=== PATIENT | female | born 1970 | race Caucasian/White ===

== ENCOUNTER → 2016-11-15 | Outpatient (CLI) | payer OTHER ==
[~2016-11-15] MED LIST: ATIVAN0.5 MG PO; BUPROPION HYDR150 M3 PO; CITALOPRAM HYDR20 MG PO; FLEXERIL10 MG PO; HYDROCODONE-APA1 TA2 PO; LEVOTHYROXIN0.025 M1 PO; LISINOPRIL 10MG10 MG PO; NAPROSYN 500MG500 MG PO; NOMEDS XX; PERCOCET 5/3251 EACH PO; SULFAMETHOXAZOL1 TA6 PO; SYNTHROID0.025 MG PO; TRAZODONE 50MG50 MG PO; VOLTAREN50 MG PO
[2016-11-15 17:46] LABS: HEMOGLOBIN 14.6 g/dL (12.2-16.2); LYMPH # 2.4 K/mm3 (0.7-4.5)
[2016-11-15 21:18] LABS: BUN 16 mg/dL (7-18)
[2016-11-15 21:19] LABS: GFR (ESTIMATED) 68 ML/MIN (59-)
[2016-11-18 06:37] LABS: Vitamin D, 25-Hydroxy 30.8 ng/mL (30.0-100.0)
== END ==
LOC: LAB 16:58
PROVIDERS: Nurse Practitioner Family
DX: R53.83 Other fatigue (principal); E55.9 Vitamin D deficiency, unspecified

== ENCOUNTER 2017-01-17 14:27 | Day surgery (SDC) | payer OTHER ==
[~2017-01-17] VITALS: Ht 170.2 cm; Wt 140.6 kg
[~2017-01-17 14:27] MED LIST changes: +ASPIRIN 81MG TA81 MG PO; +CYANOCOBAL1000 MCG/M PO; +FLUOXETINE20 M1 PO; +LIPITOR40 MG PO; +NATURE'S BLEN1000 IU PO; +TIZANIDINE HCL 44 MG PO; +VISTARIL25 M1 PO; -VOLTAREN50 MG PO; +VOLTAREN75 MG PO
[2017-01-17 14:48] VITALS: BP 147/81
[2017-01-17 15:00] VITALS: BP 147/81
[2017-01-17 15:02] VITALS: BP 150/88
--- NOTE | 2017-01-17 15:10 | Procedure Note ---
Procedure detail Date of procedure: 01/17/17 Anesthesiologist: Alfredito Owen Complications: None Pre-procedure diagnosis: Degenerative disc disease or spine multiple levels. Lumbar radicular symptoms. Post-procedure diagnosis: Same. Indications for procedure: This patient is a pleasant 46-year-old white female who presents with low back pain radiating to both hips and down both legs. She has tried physical therapy with minimal relief. She is currently on diclofenac and Zanaflex which again did not provide her adequate relief. MRI of lumbar spine shows degenerative changes with RIGHT paracentral disc herniation at L5-S1. Pain score is a 6 out of 10. Procedure detail: Procedure: Lumbar epidural steroid injection under fluoroscopy Informed consent was obtained and the risks and benefits of the procedure were explained to the patient. The patient was taken to the procedure room and noninvasive monitors placed, including noninvasive blood pressure cuff and pulse oximeter. The back was viewed using C-arm Fluoroscopy and prepped using Betadine as a cleansing solution and the L4-L5 interspace was palpated. Skin and subcutaneous tissues were anesthetized using lidocaine 1.5% and a 25-gauge needle. After this, an 18-gauge Touhy epidural needle was placed into the L4-L5 interspace and advanced using fluoroscopic guidance and loss of resistance to air until the epidural space was encountered. After confirmation of needle placement in the epidural space, with dye, a solution containing lidocaine 1.5%, 4 mL and Depo-Medrol 80 mg were incrementally injected into the lumbar epidural space. The patient tolerated the procedure well with no complications. The patient was observed in the Pain Clinic and then discharged home neurologically intact. Plan and disposition: Patient was reevaluated if 10 minutes post procedure. She is doing very well. She'll return to see us in the pain clinic for further evaluation. at 2040
[2017-01-17 15:38] VITALS: BP 109/70
== END 2017-01-17 15:40 | disposition home or self-care (01) ==
LOC: PM 14:27
PROC: 3E0R33Z Introduction of Anti-inflammatory into Spinal Canal, Percutaneous Approach (ICD-10-PCS; principal; 2017-01-17)
PROC: 3E0R3BZ Introduction of Anesthetic Agent into Spinal Canal, Percutaneous Approach (ICD-10-PCS; 2017-01-17)
PROC: B01B1ZZ Fluoroscopy of Spinal Cord using Low Osmolar Contrast (ICD-10-PCS; 2017-01-17)
DX: M51.16 Intervertebral disc disorders with radiculopathy, lumbar region (principal)
CPT/HCPCS: J1040; Q9966